=== PATIENT | female | born 1990 | race American Indian/Alaskan Native ===

== ENCOUNTER 2020-04-25 10:10 | Emergency (ER) | payer OTHER, SELFPAY ==
[~2020-04-25] VITALS: Ht 152.4 cm; Wt 88.5 kg
[~2020-04-25 10:10] MED LIST: BIRTHCONTROL; CYCL10 PO; DIGESTIVE ADVANTAGE; FEXO180; HYDACE5 PO; HYDR1TAB94 PO; IBUP800 PO; MONT10T; NAPR500 PO; NORETHTP; OMEP10ER; PENVK500 PO; PROM25 PO; RXCYCL10 PO; RXTRAM50 PO; TRAM50 PO; Zovirax200 MG PO
[2020-04-25] MEDS ORDERED: BIRTH CONTROL (10:21)
[2020-04-25] MEDS ORDERED: DOCU100 PO (12:37)
[2020-04-25] MEDS ORDERED: MIRALAX17 GM PO (12:37)
== END 2020-04-25 13:31 | disposition home or self-care (01) ==
LOC: ER 10:10
DX: K59.00 Constipation, unspecified (principal); R10.31 Right lower quadrant pain; Z88.0 Allergy status to penicillin; Z79.899 Other long term (current) drug therapy
CPT/HCPCS: 74177; 80053; 85025; 96361-59; 96374-59; 99283-25; J3010; J7030; Q9967

== ENCOUNTER 2020-08-06 06:15 | Day surgery (SDC) | payer OTHER ==
[~2020-08-06] VITALS: Ht 152.4 cm; Wt 181.6 kg
[~2020-08-06 06:15] MED LIST changes: +BIRTH CONTROL; +DOCU100 PO; +MIRALAX17 GM PO
[2020-08-06] MEDS ORDERED: IBUP200 PO (06:54)
== END 2020-08-06 08:20 | disposition home or self-care (01) ==
LOC: ORSCSDS 06:15
PROVIDERS: Orthopaedic Surgery
PROC: 01N50ZZ Release Median Nerve, Open Approach (ICD-10-PCS; principal; 2020-08-06 07:30)
DX: G56.01 Carpal tunnel syndrome, right upper limb (principal); E66.9 Obesity, unspecified; Z68.35 Body mass index [BMI] 35.0-35.9, adult
CPT/HCPCS: A9270; J2250; J2704; J7120

== ENCOUNTER 2020-09-19 06:11 | Day surgery (SDC) | payer OTHER ==
[~2020-09-19] VITALS: Ht 152.4 cm; Wt 79.3 kg
[~2020-09-19 06:11] MED LIST changes: +IBUP200 PO
[2020-09-19] MEDS ORDERED: HYDHCL25 PO (07:06)
[2020-09-19] MEDS ORDERED: NORGESTIMATE-E1 EAC2 PO (07:07)
== END 2020-09-19 08:21 | disposition home or self-care (01) ==
LOC: ORSCSDS 06:11
PROVIDERS: Orthopaedic Surgery
PROC: 01N50ZZ Release Median Nerve, Open Approach (ICD-10-PCS; principal; 2020-09-19 07:30)
DX: G56.02 Carpal tunnel syndrome, left upper limb (principal); E66.9 Obesity, unspecified; Z68.34 Body mass index [BMI] 34.0-34.9, adult
CPT/HCPCS: J2250; J2704; J7120

== ENCOUNTER 2021-01-20 10:01 | Day surgery (SDC) | payer OTHER ==
[~2021-01-20] VITALS: Ht 152.4 cm; Wt 75.8 kg
[~2021-01-20 10:01] MED LIST changes: +HYDHCL25 PO; +NORGESTIMATE-E1 EAC2 PO
--- NOTE | 2021-01-20 13:04 | NUR ---
01/20/21 1304 Deja Conde NO PREOP ANTIBIOTICS ORDERED PER .
--- NOTE | 2021-01-20 15:46 | NUR ---
Dressing to procedure site clean, dry, intact with no visible drainage, swelling, erythema or bruising noted.
--- NOTE | 2021-01-20 16:14 | NUR ---
DR RIOJAS CONTACTED AT 1600 FOR AN UPDATE ON PT. UNABLE TO REACH AT THIS TIME. LEFT MESSAGE, WAITING FOR RETURN CALL.
--- NOTE | 2021-01-20 16:20 | NUR ---
PT STATES THAT SHE CHANGED HER MIND AND WISHES TO GO HOME. SHE WOULD LIKE TO CONTROL HER OWN PAIN IN THE COMFORT OF HER HOME. SHE STATES SHE HAS FAMILY WHO WILL BE WITH HER FOR CARE.
== END 2021-01-20 22:39 | disposition home or self-care (01) ==
LOC: ORSCMMR 10:01 → ORD 11:30 → ORSCMMR 22:39
PROVIDERS: Obstetrics & Gynecology
PROC: 0UBF4ZX Excision of Cul-de-sac, Percutaneous Endoscopic Approach, Diagnostic (ICD-10-PCS; principal; 2021-01-20 11:30)
DX: N80.3 Endometriosis of pelvic peritoneum (principal); Z87.891 Personal history of nicotine dependence; E66.01 Morbid (severe) obesity due to excess calories; Z68.35 Body mass index [BMI] 35.0-35.9, adult
CPT/HCPCS: 88305; A9270; J1100; J1170; J1885; J2250; J2405; J2704; J3010; J7120

== ENCOUNTER 2021-05-05 06:05 | Day surgery (SDC) | payer OTHER ==
[~2021-05-05] VITALS: Ht 152.4 cm; Wt 74.8 kg
[~2021-05-05 06:05] MED LIST changes: +MULVITA PO
--- NOTE | 2021-05-05 06:32 | NUR ---
PT ADMITTED TO [facility]. AGREES WITH PLANNED SURGERY. LUNG SOUNDS CLEAR.
--- NOTE | 2021-05-05 08:08 | NUR ---
05/05/21 0808 Reggie Bonilla SEARS CATH PLACED PER DR. HOWELL INTRA-OPERATIVELY
--- NOTE | 2021-05-05 12:36 | NUR ---
PT HAD 1 UNMEASURED VOID, PVR PER BLADDER SCAN 106CC, PT VOIDED AGAIN, NO PVR PER BLADDER SCAN, MEDICATED FOR PAIN, REPORTS NAUSEA IS "SLIGHTLY BETTER" CONT. TO MONITOR FOR ANY CHANGES.
[2021-05-05] MEDS ORDERED: DOCU100 PO (12:57)
[2021-05-05] MEDS ORDERED: ACET500 PO (12:57)
[2021-05-05] MEDS ORDERED: GABA300 PO (12:58)
[2021-05-05] MEDS ORDERED: IBUP800 PO (13:00)
[2021-05-05] MEDS ORDERED: OXYC5 PO (13:01)
--- NOTE | 2021-05-05 13:28 | NUR ---
PT VOIDED, 200CC LIGHT PINK TINGED URINE, PVR LESS THAN 10CC PER BLADDER SCAN.
--- NOTE | 2021-05-05 15:23 | NUR ---
DC'D HOME, DC INSTRUCTIONS GIVEN, VERBALIZED UNDERSTANDING, REPORTS HAVING TOLERABLE PAIN CONTROL WITH OXYCODONE, AMBULATED DOWN THE HALLS, <10CC PVR, PT DC'D WITH BELONGINGS AND ACCOMPANIED BY MOM.
--- NOTE | 2021-05-05 15:26 | NUR ---
IV ON RA DC'D, CATH INTACT.
== END 2021-05-05 15:14 | disposition home or self-care (01) ==
LOC: ORSCMMR 06:05 → SURS 10:07
PROVIDERS: Obstetrics & Gynecology
PROC: 0UT7FZZ Resection of Bilateral Fallopian Tubes, Via Natural or Artificial Opening With Percutaneous Endoscopic Assistance (ICD-10-PCS; principal; 2021-05-05 07:30)
PROC: 0UT9FZZ Resection of Uterus, Via Natural or Artificial Opening With Percutaneous Endoscopic Assistance (ICD-10-PCS; principal; 2021-05-05 07:30)
DX: N80.3 Endometriosis of pelvic peritoneum (principal); G89.29 Other chronic pain; E66.9 Obesity, unspecified; Z68.32 Body mass index [BMI] 32.0-32.9, adult
CPT/HCPCS: 88307; A9270; J0171; J0690; J1100; J1885; J2250; J2405; J2704; J3010; J7120